=== PATIENT | female | born 1985 | race Caucasian/White ===

== ENCOUNTER 2017-01-03 11:19 | Emergency (ER) | payer MEDICAID ==
[~2017-01-03] VITALS: Wt 115.2 kg
[~2017-01-03 11:19] MED LIST: ACET325T33 PO; BENA40TA54 PO; FAMO-18 PO; HTN MED; HYD25 PO; HYDR-906 PO; IBUP800T25 PO; advil
--- NOTE | 2017-01-03 12:23 | RADRPT ---
PROCEDURE: XR Abdomen CLINICAL INDICATION: Left-sided pain TECHNIQUE: AP supine and upright radiographs of the abdomen were submitted COMPARISON: Previous CT demonstrated 11/03/[address] demonstrated fatty infiltrated liver and a left adrenal myelolipoma FINDINGS: The bowel gas pattern is unremarkable. No free air is identified. No organomegaly or discrete mass is evident. No pathological calcification is identified. The osseous elements appear unremarkable. IMPRESSION: Nonspecific abdomen Physician Marleni Date Time Electronically viewed and signed by Chava Garner Physician on 01/03/2017 12:23 RH/
[2017-01-03] MEDS ORDERED: KETOROLAC 60 MG INJ IM STA (12:43)
[2017-01-03] MEDS ORDERED: HYDR-906 PO (12:56)
[2017-01-03] MEDS ORDERED: NAPR-260 PO (12:56)
[2017-01-03 13:08] LABS: ADD UMIC NO; URINE BILIRUBIN (Dip) NEGATIVE (NEGATIVE); URINE BLOOD (Dip) NEGATIVE (NEGATIVE); URINE COLOR LT. YELLOW (YELLOW); URINE GLUCOSE (Dip) NEGATIVE (NEGATIVE); URINE KETONES (Dip) NEGATIVE (NEGATIVE); URINE LEUKOCYTE ESTERASE (Dip) NEGATIVE (NEGATIVE); URINE NITRITE (Dip) NEGATIVE (NEGATIVE); URINE TOTAL PROTEIN (Dip) NEGATIVE (NEGATIVE); URINE UROBILINOGEN (Dip) 0.2 E.U./dL (0.1-1.0)
--- NOTE | 2017-01-03 13:43 | ERD ---
ER Documentation Chief Complaint Date/Time DATE: 01/03/17 TIME: 13:38 Chief Complaint LEFT ABD PAIN X2 DAYS HPI This 31-year-old female presents for continued left abdominal pain that goes from the top of her left abdomen all the way down. She believes she may be slightly constipated. The pain is a dull ache that comes and goes. She was seen here last month for the same. She states that she does have a strong family history of colon cancer but has not obtained a colonoscopy because no one has informed her she needed one. ROS All systems reviewed and are negative except as per history of present illness. Medications Home Meds Active Scripts Naproxen* (Naprosyn*) 500 Mg Tablet, 500 MG PO BID Y for PAIN AND/OR INFLAMMATION, #30 TAB Prov:ABNER KAPLAN DO 01/03/17 Hydrocodone/Acetaminophen ([place] 5-325 Tablet) 1 Each Tablet, 1 EACH PO Q6, #20 TAB Prov:ABNER KAPLAN DO 01/03/17 Hydrocodone/Acetaminophen ([place] 5-325 Tablet) 1 Each Tablet, 1 TAB PO Q6H Y for PAIN, #7 TAB Prov:ANABELA FORD PA-C 11/03/16 Famotidine* (Pepcid*) 20 Mg Tablet, 20 MG PO BID for 4 Days, #30 TAB Prov:ANABELA FORD PA-C 11/03/16 Acetaminophen* (Tylenol*) 325 Mg Tablet, 2 TAB PO Q8 Y for PAIN AND OR ELEVATED TEMP, #20 TAB Prov:ANABELA FORD PA-C 05/12/16 Ibuprofen* (Motrin*) 800 Mg Tab, 800 MG PO Q6, #30 TAB Prov:ANABELA FORD PA-C 07/10/15 Reported Medications Hydrochlorothiazide* (Hydrochlorothiazide*) 25 Mg Tab, 25 MG PO daily 08/26/13 Benazepril Hcl* (Lotensin*) 40 Mg Tablet, 20 MG PO daily 08/26/13 [advil] No Conflict Check 08/26/13 [Htn Med] No Conflict Check 08/05/12 Allergies Allergies: Coded Allergies: No Known Drug Allergy (Verified Allergy, Unknown, 08/26/13) PMhx/Soc History of Surgery: Yes () Anesthesia Reaction: No Hx Neurological Disorder: No Hx Respiratory Disorders: No Hx Cardiac Disorders: Yes (HTN (DENIES OTHER PMH)) Hx Psychiatric Problems: No Hx Miscellaneous Medical Probl: No Hx Alcohol Use: No Hx Substance Use: No Hx Tobacco Use: No Smoking Status: Never smoker Physical Exam Vitals Vital Signs Date Time Temp Pulse Resp B/P Pulse Ox O2 Delivery O2 Flow Rate FiO2 01/03/17 11:21 97.0 75 18 169/75 100 Physical Exam Const: [] Head: Atraumatic Eyes: Normal Conjunctiva ENT: Normal External Ears, Nose and Mouth. Neck: Full range of motion..~ No meningismus. Resp: Clear to auscultation bilaterally Cardio: Regular rate and rhythm, no murmurs Abd: Soft, non tender, non distended. Normal bowel sounds Skin: No petechiae or rashes Back: No midline or flank tenderness Ext: No cyanosis, or edema Neur: Awake and alert Psych: Normal Mood and Affect Results 24 hrs Laboratory Tests Test 01/03/17 12:10 Urine Bilirubin NEGATIVE Urine Clarity CLEAR Urine Color LT. YELLOW Urine Glucose NEGATIVE% Urine Hemoglobin NEGATIVE Urine Ketones NEGATIVE Urine Leukocyte Esterase NEGATIVE Urine Nitrite NEGATIVE Urine Specific [place] <=1.005 Urine Total Protein NEGATIVE Urine Urobilinogen 0.2 E.U./dL Urine pH 5.5 Current Medications Medications (Trade) Dose Ordered Sig/Cathy Route PRN Reason Start Time Stop Time Status Last Admin Dose Admin Ketorolac Tromethamine (Toradol) 60 mg ONCE STAT IM 01/03/17 12:43 01/03/17 12:44 DC 01/03/17 12:56 Procedures/MDM Mild left-sided abdominal pain without obvious etiology. Reviewed the patient' s EMR from just let under 1 month ago when she had an extensive workup for identical symptoms. Ultrasound and CT were performed at that time showed no acute process. Laboratories were also obtained and did not show any abdominal abnormalities. I have very low suspicion for infection. Patient has benign abdominal examination. Urinalysis is negative for infection here. I strongly believe that the best thing for the patient is to obtain a colonoscopy as an outpatient. She was given Toradol in the emergency room which helped her pain greatly. Vital signs are stable per going to discharge with naproxen and [place] as well as return precautions to the ER and written and verbal instructions to see her primary care doctor, of whom she has good follow-up, to get a referral for a colonoscopy within the next week or 2. . Departure Diagnosis: Primary Impression: Abdominal pain Condition: Stable Patient Instructions: Abdominal Pain Additional Instructions: Llame al doctor ZIA y francesco jasmine PIERRE PARA DENTRO DE 1-2 ELMORE y un referral para jasmine COLONOSCOPIA. Dgale a la secretaria que nosotros le instruimos hacer esta pierre.Avise o llame si ritchie condicin se empeora antes de la pierre. Regresa aqui si peor o no mejor. ABNER KAPLAN DO Jan 03, 2017 13:43
[2017-01-03 14:02] VITALS: BP 154/72; PULSE 66; RESP 18; TEMP 97
== END 2017-01-03 14:03 | disposition home or self-care (01) ==
LOC: FTE 11:19
DX: R10.9 Unspecified abdominal pain (principal); I10 Essential (primary) hypertension
CPT/HCPCS: 74010; 81003; 96372; J1885; Z7502

== ENCOUNTER 2017-09-07 16:26 | Emergency (ER) | payer MEDICAID ==
[~2017-09-07] VITALS: Ht 177.8 cm; Wt 117.0 kg
[~2017-09-07 16:26] MED LIST changes: -FAMO-18 PO; +FAMO-96 PO; -HYD25 PO; +HYDR25TA6 PO; +NAPR-260 PO
[2017-09-07 16:39] VITALS: Ht 177.8 cm; Wt 117.0 kg
[2017-09-07] MEDS ORDERED: SOD CHLORIDE 0.9% 1,000 ML IV STA (17:40)
[2017-09-07] MEDS ORDERED: KETOROLAC 30 MG INJ IV STA (17:40)
[2017-09-07 18:30] LABS: BASOPHIL # 0.1 10^3/ul (0.0-0.1); BASOPHILS % 0.5 % (0.0-2.0); EOSINOPHILS # 0.3 10^3/ul (0.0-0.5); EOSINOPHILS % 2.5 % (0.0-7.0); HEMATOCRIT 42.3 % (37.0-47.0); HEMOGLOBIN 14.4 g/dl (12.0-16.0); LYMPHOCYTES # 4.2 10^3/ul (0.8-2.9); LYMPHOCYTES % 39.3 % (15.0-51.0); MEAN CORPUSCULAR HEMOGLOBIN 30.1 pg (29.0-33.0); MEAN CORPUSCULAR VOLUME 88.3 fl (82.0-101.0); MEAN PLATELET VOLUME 8.9 fl (7.4-10.4); MONOCYTE # 0.7 10^3/ul (0.3-0.9); MONOCYTES % 6.5 % (0.0-11.0); NEUTROPHIL # 5.4 10^3/ul (1.6-7.5); NEUTROPHILS % 50.8 % (39.0-77.0); PLATELET COUNT 285 10^3/UL (140-415); RED BLOOD COUNT 4.79 10^6/ul (4.20-5.40); RED CELL DISTRIBUTION WIDTH 12.1 % (11.5-14.5); WHITE BLOOD COUNT 10.7 10^3/ul (4.8-10.8)
[2017-09-07 18:47] LABS: ADD UMIC NO; UR ASCORBIC ACID NEGATIVE (NEGATIVE); UR BILIRUBIN (Dip) NEGATIVE (NEGATIVE); UR BLOOD (Dip) NEGATIVE (NEGATIVE); UR CLARITY CLEAR (CLEAR); UR COLOR COLORLESS (YELLOW); UR GLUCOSE (Dip) NEGATIVE (NEGATIVE); UR KETONES (Dip) NEGATIVE (NEGATIVE); UR LEUKOCYTE ESTERASE (Dip) NEGATIVE Leu/ul (NEGATIVE); UR NITRITE (Dip) NEGATIVE (NEGATIVE); UR SPECIFIC GRAVITY (Dip) 1.004 (1.003-1.030); UR TOTAL PROTEIN (Dip) NEGATIVE (NEGATIVE); UR UROBILINOGEN (Dip) NEGATIVE (NEGATIVE)
[2017-09-07 18:54] LABS: ALBUMIN 4.7 g/dl (3.3-4.9); ALBUMIN/GLOBULIN RATIO 1.27; BILIRUBIN,INDIRECT 0.3 mg/dl (0-1.1); BILIRUBIN,TOTAL 0.3 mg/dl (0.2-1.3); CALCIUM 9.6 mg/dl (8.4-10.2); CREATININE 0.52 mg/dl (0.44-1.00); POTASSIUM 3.9 mmol/L (3.5-5.1); TOTAL PROTEIN 8.4 g/dl (6.1-8.1)
--- NOTE | 2017-09-07 20:30 | RADRPT ---
PROCEDURE: CT Abdomen and Pelvis without contrast CLINICAL INDICATION: Left flank pain TECHNIQUE: Transaxial images were obtained through the abdomen and pelvis on a multi-slice scanner without the intravenous contrast administration. No oral contrast had previously been given. Sagit rell and coronal re-formations were subsequently reconstructed. One or more of the following dose reduction techniques were used: - Automated exposure control. - Adjustment of the mA and/or kV according to patient size. - Use of iterative reconstruction technique. Radiation dose: CTDIvol = 22.80 mGy; DLP = 1479.08 mGy-cm. COMPARISON: 11/03/2016 FINDINGS: Lung bases: The visualized lung bases appear unremarkable. Liver: The liver is enlarged but no focal lesion. Gallbladder: The wall is not thickened. No radiopaque stones are identified. Bile ducts: The intra and extrahepatic bile ducts are normal in caliber. Pancreas: Appears normal with no mass or inflammation evident. Spleen: Normal in size with no focal lesion. Adrenals: A 1.6 cm fatty left adrenal nodule is identified compatible with a myelolipoma. Kidneys, ureters and bladder: The kidneys are normal in size and there is no mass, pathological calc ification, or hydronephrosis evident. There is no perinephric stranding. The ureters are normal in c aliber and no ureteroliths are identified. The bladder appears unremarkable. Reproductive organs: The uterus is midline and no adnexal mass is evident. Stomach and bowel: The bowel appears unremarkable with no evidence of bowel obstruction or inflammat ion. The stomach appears unremarkable. Appendix: A normal vermiform appendix is evident. Peritoneum: No free intraperitoneal fluid or air is identified. Aorta: Normal in caliber with no aneurysmal dilatation. There is minimal atherosclerotic vascular ca lcification. IVC: Unremarkable. Lymph nodes: No pathologically enlarged nodes are identified. Osseous structures: The osseous elements appear intact. IMPRESSION: 1. Since the previous CT of 11/03/2016, the liver remains enlarged with no focal lesion. 2. A 1.6 cm left adrenal myelolipoma is again evident. 3. Otherwise, stable and unremarkable non-enhanced CT scan of the abdomen and pelvis. R Pascual, Physician Date Time Electronically viewed and signed by Chava Garner Physician on 09/07/2017 20:30 RH/
[2017-09-07] MEDS ORDERED: IBUP-1542 PO (21:02)
[2017-09-07] MEDS ORDERED: HYDR-906 PO (21:03)
[2017-09-07 21:20] VITALS: BP 140/93; PULSE 64; RESP 18; TEMP 97.8
--- NOTE | 2017-09-07 21:46 | ERD ---
ER Documentation Chief Complaint Chief Complaint LEFT FLANK PAIN WITHOUT DYSURIA X 3 DAYS. FEVER HPI This is a 32-year-old female presents to the ER with left-sided flank pain that is ears. Patient states that over the last 3 days pain has been worsening. She has been to many ER secondary to this pain, and has been trying to get medical care however she does not have any insurance is unable to obtain insurance. Is described as sharp and intermittent. She denies any nausea vomiting or diarrhea. She denies fevers or chills. She denies urinary frequency and dysuria. Patient denies constipation. Patient tried taking Tylenol however it does not help. ROS 12 point review of systems was done, all negative except per HPI. Medications Home Meds Active Scripts Hydrocodone/Acetaminophen ([place] 5-325 Tablet) 1 Each Tablet, 1 TAB PO Q6H Y for PAIN, #15 TAB Prov:MILLER ANTHONY 09/07/17 Ibuprofen* (Motrin*) 600 Mg Tab, 600 MG PO Q6, #30 TAB Prov:MILLER ANTHONY 09/07/17 Naproxen* (Naprosyn*) 500 Mg Tablet, 500 MG PO BID Y for PAIN AND/OR INFLAMMATION, #30 TAB Prov:ABNER KAPLAN DO 01/03/17 Hydrocodone/Acetaminophen ([place] 5-325 Tablet) 1 Each Tablet, 1 EACH PO Q6, #20 TAB Prov:ABNER AKPLAN DO 01/03/17 Hydrocodone/Acetaminophen ([place] 5-325 Tablet) 1 Each Tablet, 1 TAB PO Q6H Y for PAIN, #7 TAB Prov:ANABELA FORD PA-C 11/03/16 Famotidine* (Pepcid*) 20 Mg Tablet, 20 MG PO BID for 4 Days, #30 TAB Prov:ANABELA FORD PA-C 11/03/16 Acetaminophen* (Tylenol*) 325 Mg Tablet, 2 TAB PO Q8 Y for PAIN AND OR ELEVATED TEMP, #20 TAB Prov:ANABELA FORD PA-C 05/12/16 Ibuprofen* (Motrin*) 800 Mg Tab, 800 MG PO Q6, #30 TAB Prov:ANABELA FORD PA-C 07/10/15 Reported Medications Hydrochlorothiazide* (Hydrochlorothiazide*) 25 Mg Tab, 25 MG PO daily 08/26/13 Benazepril Hcl* (Lotensin*) 40 Mg Tablet, 20 MG PO daily 08/26/13 [advil] No Conflict Check 08/26/13 [Htn Med] No Conflict Check 08/05/12 Allergies Allergies: Coded Allergies: No Known Drug Allergy (Verified Allergy, Unknown, 08/26/13) PMhx/Soc History of Surgery: Yes () Anesthesia Reaction: No Hx Neurological Disorder: No Hx Respiratory Disorders: No Hx Cardiac Disorders: Yes (HTN (DENIES OTHER PMH)) Hx Psychiatric Problems: No Hx Miscellaneous Medical Probl: No Hx Alcohol Use: No Hx Substance Use: No Hx Tobacco Use: No Smoking Status: Never smoker Physical Exam Vitals Vital Signs Date Time Temp Pulse Resp B/P Pulse Ox O2 Delivery O2 Flow Rate FiO2 09/07/17 21:20 97.8 64 18 140/93 98 Room Air 09/07/17 16:39 97.9 78 18 164/83 98 Physical Exam GENERAL: The patient is well developed and appropriate for usual state of health , in no apparent distress. HEENT: Atraumatic. CHEST: Clear to auscultation bilaterally. There are no rales, wheezes or rhonchi. HEART: Regular rate and rhythm. No murmurs, clicks, rubs or gallops. ABDOMEN: Soft nondistended, tender to palpation the left upper quadrant, left lower quadrant. Good bowel sounds. No rebound or guarding. No gross peritonitis. No gross organomegaly or masses. No Pérez sign or McBurney point tenderness. BACK: No midline or flank tenderness. CVA tenderness. NEURO: Alert and oriented SKIN: There is no apparent rash or petechia. The skin is warm and dry. Result Diagram: 09/07/17 1800 09/07/17 1800 Results 24 hrs Laboratory Tests Test 09/07/17 18:00 White Blood Count 10.710^3/ul Red Blood Count 4.7910^6/ul Hemoglobin 14.4g/dl Hematocrit 42.3% Mean Corpuscular Volume 88.3fl Mean Corpuscular Hemoglobin 30.1pg Mean Corpuscular Hemoglobin Concent 34.0g/dl Red Cell Distribution Width 12.1% Platelet Count 77084^3/UL Mean Platelet Volume 8.9fl Neutrophils % 50.8% Lymphocytes % 39.3% Monocytes % 6.5% Eosinophils % 2.5% Basophils % 0.5% Nucleated Red Blood Cells % 0.0/100WBC Neutrophils # 5.410^3/ul Lymphocytes # 4.210^3/ul Monocytes # 0.710^3/ul Eosinophils # 0.310^3/ul Basophils # 0.110^3/ul Nucleated Red Blood Cells # 0.010^3/ul Urine Color COLORLESS Urine Clarity CLEAR Urine pH 6.0 Urine Specific [place] 1.004 Urine Ketones NEGATIVEmg/dL Urine Nitrite NEGATIVEmg/dL Urine Bilirubin NEGATIVEmg/dL Urine Urobilinogen NEGATIVEmg/dL Urine Leukocyte Esterase NEGATIVELeu/ul Urine Hemoglobin NEGATIVEmg/dL Urine Glucose NEGATIVEmg/dL Urine Total Protein NEGATIVEmg/dl Sodium Level 144mmol/L Potassium Level 3.9mmol/L Chloride Level 101mmol/L Carbon Dioxide Level 31mmol/L Anion Gap 16 Blood Urea Nitrogen 8mg/dl Creatinine 0.52mg/dl Glucose Level 105mg/dl Calcium Level 9.6mg/dl Total Bilirubin 0.3mg/dl Direct Bilirubin 0.00mg/dl Indirect Bilirubin 0.3mg/dl Aspartate Amino Transf (AST/SGOT) 38IU/L Alanine Aminotransferase (ALT/SGPT) 60IU/L Alkaline Phosphatase 54IU/L Total Protein 8.4g/dl Albumin 4.7g/dl Globulin 3.70g/dl Albumin/Globulin Ratio 1.27 Lipase 144U/L Current Medications Medications (Trade) Dose Ordered Sig/Cathy Route PRN Reason Start Time Stop Time Status Last Admin Dose Admin Sodium Chloride (NS) 1,000 ml @ 1,000 mls/hr Q1H STAT IV 09/07/17 17:40 09/07/17 18:39 DC 09/07/17 18:11 Ketorolac Tromethamine (Toradol) 30 mg ONCE STAT IV 09/07/17 17:40 09/07/17 17:41 DC 09/07/17 18:[id number] [place], [place] [id number] Radiology Main Line: [phone] DIAGNOSTIC IMAGING REPORT Patient: FREEDOM WHITE : 1985 Age: 32 Sex: F MR #: [id number] DOS: 09/07/17 [id number] Ordering MD: MILLER ANTHONY PA-C Location: [facility] Room/Bed: PROCEDURE: CT Abdomen and Pelvis without contrast CLINICAL INDICATION: Left flank pain TECHNIQUE: Transaxial images were obtained through the abdomen and pelvis on a multi-slice scanner without the intravenous contrast administration. No oral contrast had previously been given. Sagittal and coronal re-formations were subsequently reconstructed. One or more of the following dose reduction techniques were used: - Automated exposure control. - Adjustment of the mA and/or kV according to patient size. - Use of iterative reconstruction technique. Radiation dose: CTDIvol = 22.80 mGy; DLP = 1479.08 mGy-cm. COMPARISON: 11/03/2016 FINDINGS: Lung bases: The visualized lung bases appear unremarkable. Liver: The liver is enlarged but no focal lesion. Gallbladder: The wall is not thickened. No radiopaque stones are identified. Bile ducts: The intra and extrahepatic bile ducts are normal in caliber. Pancreas: Appears normal with no mass or inflammation evident. Spleen: Normal in size with no focal lesion. Adrenals: A 1.6 cm fatty left adrenal nodule is identified compatible with a myelolipoma. Kidneys, ureters and bladder: The kidneys are normal in size and there is no mass, pathological calcification, or hydronephrosis evident. There is no perinephric stranding. The ureters are normal in caliber and no ureteroliths are identified. The bladder appears unremarkable. Reproductive organs: The uterus is midline and no adnexal mass is evident. Stomach and bowel: The bowel appears unremarkable with no evidence of bowel obstruction or inflammation. The stomach appears unremarkable. Appendix: A normal vermiform appendix is evident. Peritoneum: No free intraperitoneal fluid or air is identified. Aorta: Normal in caliber with no aneurysmal dilatation. There is minimal atherosclerotic vascular calcification. IVC: Unremarkable. Lymph nodes: No pathologically enlarged nodes are identified. Osseous structures: The osseous elements appear intact. IMPRESSION: 1. Since the previous CT of 11/03/2016, the liver remains enlarged with no focal lesion. 2. A 1.6 cm left adrenal myelolipoma is again evident. 3. Otherwise, stable and unremarkable non-enhanced CT scan of the abdomen and pelvis. Chava Garner Physician Date Time Electronically viewed and signed by Chava Garner Physician on 09/07/2017 20:30 RH/ CC: MILLER ANTHONY Procedures/MDM Is a 32-year-old female presents to the ER with acute on chronic left-sided flank pain. At this time there is no evidence of acute abdomen her physical examination is completely benign. Patient has been afebrile and does not have a history of fevers. There is no evidence of an infection. I discussed with patient the importance of following up with all you to see a mail list librarian and to get a colonoscopy as she does have family history of colon cancer. Sent with ibuprofen and with [place]. She is to follow-up with her primary care doctor within 1-2 days and see a mail list librarian as soon as possible. She stated that she did have a appointment with her doctor on Wednesday. Patient has also been going to [facility], however it has been taking very long to get her colonoscopy done. I explained to patient that this is very important. I shared My medical decision making with the patient she understands and agrees with plan. Departure Diagnosis: Primary Impression: Flank pain Condition: Stable Patient Instructions: Flank Pain, Uncertain Cause Additional Instructions: Llame al doctor ZIA y francesco jasmine PIERRE PARA DENTRO DE 1-2 ELMORE.Dgale a la secretaria que nosotros le instruimos hacer esta pierre.Avise o llame si ritchie condicin se empeora antes de la pierre. Regresa aqui si peor o no mejor. MILLER ANTHONY Sep 07, 2017 21:46
== END 2017-09-07 21:20 | disposition home or self-care (01) ==
LOC: FTE 16:26
DX: R10.32 Left lower quadrant pain (principal); R10.12 Left upper quadrant pain; I10 Essential (primary) hypertension
CPT/HCPCS: 36415; 74176; 80053; 81003; 83690; 85025; 96374; J1885; J7030; Z7502